=== PATIENT | female | born 1970 | race African-American/Black ===

== ENCOUNTER 2023-05-19 22:10 | Emergency (ER) | payer OTHER, SELFPAY ==
[2023-05-19 22:12] VITALS: BP 177/85; PULSE 90; RESP 20; TEMP 37.1; O2SAT 96
--- NOTE | 2023-05-19 23:07 | ED.BACK ---
HPI - Back Pain/Injury General Chief Complaint: Back Pain/Injury Stated Complaint: back pain Time Seen by Provider: 05/19/23 22:27 Source: patient Mode of arrival: ambulatory Limitations: no limitations History of Present Illness HPI Narrative: 52-year-old female presenting with low back pain on the left side. Started about a week ago. Says feels like more of a spasm occasionally when she walks. Started after her small grandchild jumped on her when she was lying down. No paresthesias or weakness. No saddle anesthesia. No difficulty with bowel movements or urination. She was also concerned because he landed on her right breast and her right breast is swollen. breast is not painful. No other complaints. All other symptoms and complaints are negative as per ROS. Related Data Allergies Allergy/AdvReac Type Severity Reaction Status Date / Time Penicillins Allergy Rash Verified 05/19/23 22:22 Review of Systems Review of Systems: All systems reviewed & are unremarkable except as noted in HPI and below PMFSH Past Medical History Medical History (Updated 05/19/23 @ 23:13 by Derek Bertrand MD) Hypertension Exam Narrative: Constitutional: Generally well appearing, no acute distress Head: Atraumatic, no deformities. Eyes: Pupils equal, round, and reactive to light. Neck: Supple, no tracheal deviation, no JVD. ENMT: Mucous membranes moist Cardiovascular: S1, S2 auscultated. No murmurs, rubs, or gallops. No S3/S4. Normal Distal pulses. No peripheral edema. Respiratory: Lung sounds equal. No wheezes, rales, or rhonchi. Breast: Left breast shows no abnormalities. Rate breast shows Mild swelling and firmness inferior to the nipple region. Gastrointestinal: Abdomen was soft and non-tender. Non-distended. No rebound or guarding. Genitourinary: Deferred Musculoskeletal: Normal muscle tone and bulk. No obvious deformities or tenderness over extremities. mild tenderness left lower lumbar paraspinal muscular region. No midline tenderness. Skin: No rashes. Neurological: Strength 5/5 in extremities. Cranial nerves I-XII grossly intact. Distal sensation intact. Mental Status: Awake, alert and oriented x3. Follows commands Course Vital Signs Vital signs: Vital Signs Temperature 37.1 C 05/19/23 22:12 Pulse Rate 90 05/19/23 22:12 Respiratory Rate 20 05/19/23 22:12 Blood Pressure 177/85 H 05/19/23 22:12 Pulse Oximetry 96 05/19/23 22:12 Oxygen Delivery Room Air 05/19/23 22:12 Temperature 37.1 C 05/19/23 22:12 Pulse Rate 90 05/19/23 22:12 Respiratory Rate 20 05/19/23 22:12 Blood Pressure 177/85 H 05/19/23 22:12 Pulse Oximetry 96 05/19/23 22:12 Oxygen Delivery Room Air 05/19/23 22:12 MDM - Back Pain/Injury MDM Narrative Medical decision making narrative: 52-year-old female presenting with multiple complaints including left lower lumbar muscle spasms after small grand child jumped on her about a week ago. Also landed on her right breast in her right breast has been swelling for the last week. On exam, she has some mild tenderness in the left lower lumbar region in the paraspinal musculature. Seems like muscle spasm more than anything more serious. No signs or red flag findings of acute spinal cord impingement. Right breast shows some mild swelling and firmness mostly inferior to the nipple region. No discharge. Suspect likely a contusion however discussed with patient at length that this is possibly a new cancer given the area where it is located however I think less likely as she reports it was definitely not there 2 weeks ago and only started after her grandchild on her. 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 She understands that there is a possibility of cancer and know she needs to follow up. Given prescription for naproxen. Pt feeling improved and would like to go home at this point. Return precautions were
[2023-05-19 23:26] VITALS: BP 160/89; PULSE 86; RESP 18; O2SAT 98
== END 2023-05-19 23:28 | disposition home or self-care (01) ==
PROVIDERS: Emergency Provider Emergency Medicine; PCP Internal Medicine
DX: S39.012A Strain of muscle, fascia and tendon of lower back, initial encounter (principal); S20.01XA Contusion of right breast, initial encounter; I10 Essential (primary) hypertension; W50.0XXA Accidental hit or strike by another person, initial encounter
CPT/HCPCS: 99283